=== PATIENT | female | born 1965 | race Caucasian/White ===

== ENCOUNTER 2016-11-19 05:48 | Day surgery (SDC) | payer BC ==
[2016-11-19] VITALS (14 sets, daily range): BP systolic 99–149; BP diastolic 60–87; PULSE 57–80; RESP 12–18; TEMP 97.4–97.9; O2SAT 97–100; Ht 177.8 cm; Wt 63.5 kg
[~2016-11-19] VITALS: Ht 177.8 cm; Wt 63.5 kg
[~2016-11-19 05:48] MED LIST: MULT-933 PO; RANI300T4 PO
[2016-11-19 06:16] LABS: BASOPHILS # (AUTO) 0.1 T/MM3 (0-0.2); BASOPHILS % (AUTO) 0.9 % (0-2); EOSINOPHILS # (AUTO) 0.1 T/MM3 (0-0.5); EOSINOPHILS % (AUTO) 1.8 % (0-4); HGB - HEMOGLOBIN 13.8 GM/DL (12-16); IMMATURE GRANULOCYTE # (AUTO) 0.01 T/MM3 (0.00-0.03); IMMATURE GRANULOCYTE % (AUTO) 0.2 % (0.0-0.5); LYMPHOCYTES # (AUTO) 1.8 T/MM3 (1-4.8); LYMPHOCYTES % (AUTO) 33.4 % (23-45); MEAN CORPUSCULAR HGB 28.6 UUG (26-34); MEAN CORPUSCULAR HGB CONC(MCHC 32.1 GM/DL (31-37); MEAN PLATELET VOLUME 9.4 UM3 (9.4-12.4); MONOCYTES # (AUTO) 0.5 T/MM3 (0-0.8); MONOCYTES % (AUTO) 8.5 % (0-9.0); NEUTROPHILS % (AUTO) 55.2 % (33-66); RED BLOOD COUNT 4.83 M/MM3 (4.00-5.20); WBC - WHITE BLOOD COUNT 5.4 T/MM3 (4.5-11.0)
[2016-11-19 06:22] LABS: BLOOD, URINE NEGATIVE (NEGATIVE); COLOR,URINE YELLOW (YELLOW); LEUKOCYTE ESTERASE ,URINE NEGATIVE (NEGATIVE); NITRITE,URINE NEGATIVE (NEGATIVE); UROBILINOGEN,URINE 0.2 EU/DL (NORMAL)
[2016-11-19 06:25] LABS: ANION GAP 12 MEQ/L (5-15); BUN/CREATININE RATIO 18 RATIO (6-26); CALCIUM 9.5 MG/DL (8.4-10.2); CHLORIDE 103 MEQ/L (98-107); CO2 - CARBON DIOXIDE 31 MEQ/L (22-30); CREATININE 0.8 MG/DL (0.7-1.2); GLOMERULAR FILTRATION RATE 75; GLUCOSE 93 MG/DL (65-110); POTASSIUM 3.8 MEQ/L (3.6-5); SODIUM 146 MEQ/L (134-144)
--- NOTE | 2016-11-19 06:54 | ANESPREOP ---
Anesthesia Record Date and Time DATE: 11/19/16 TIME: 06:53 Proposed Surgical Procedure COLD KNIFE CONE BX NPO since: 2299 Allergies: Coded Allergies: No Known Allergies (Unverified , 11/19/16) Ht/Wt/BMI Height: 5 ' 10.00 " Weight: 63.500 kg BMI: 20.1 kg/m2 Vital Signs Date Time Temp Pulse Resp B/P Pulse Ox O2 Delivery O2 Flow Rate FiO2 11/19/16 06:02 97.6 80 14 143/80 99 Room Air Medications Inpatient Medications Current Medications Medications (Trade) Dose Ordered Sig/Juliette Start Time Stop Time Status Last Admin Dose Admin Lactated Ringer's (Lactated Ringers) 1,000 ml @ 125 mls/hr Q8H 11/19/16 07:00 11/19/16 06:26 125 MLS/HR Multivitamin (Multi-Day Vitamins) 1 Each Tablet, 1 TAB PO DAILY, (Reported) Last Taken: on 11/18/16 1100 Ranitidine HCl (Ranitidine HCl) 300 Mg Tablet, 1 TAB PO BID, (Reported) Last Taken: on 11/19/16 0430 Currently on Beta Yuli: No Medical/Surgical History Anesthesia PMH: Reports: Reflux (controlled with meds), Denies: Anesthesia Reactions (NO AIRWAY ISSUES), Cancer, Glaucoma, Malignant Hyperthermia, Sleep Apnea Smoking Status: Never smoker Use Chewing Tobacco?: No Second Hand Exposure: No Substance Use Type: does not use Alcohol Intake: none HX of Last Menstrual Period: FEB 2013 Past Surgical History Orthopedic Surgeries: Yes - L. KNEE ARTHROSCOPY PER H&P Abdominal Surgeries: Yes - LAP RAUDEL Genitourinary Surgeries: Cardiac Surgeries: Endocrine Surgeries: Reproductive Surgeries: Yes - ENDOCERVICAL CURETTAGE, CERVICAL BIOPSY, LEEP PER H&P Neurological Surgeries: Ear Surgeries: Nose Surgeries: Throat Surgeries: Other Surgeries: Anesthesia Adverse Reactions: FOUND none Family Hx of Anesthesia Advers: none Hx of Motion Sickness: No Pertinent Findings Laboratory Tests 11/19/16 06:09 Test 11/19/16 06:09 Human Chorionic Gonadotropin, Qual Negative (NEGATIVE) Physical Exam Respiratory: Bilat breath sounds equal, Lungs clear Cardiovascular: FOUND Regular rate, rhythm Airway Assessment Mallampati Score: II TMD: 3 Fingerbreadths Neck Extension: Good Overall Assessment: No Airway Concerns ASA: 1 Plan Anesthesia Plan: TIVA, LMA, GETA Discussion Discussed risks/options/alternatives of anesthesia and questions answered. Patient consents. Nursing pain assessment noted. Attestation Statement Prior to the delivery of any anesthetic medication, I examined the patient, developed the plan, obtained the patient's consent and discussed the risk and benefits of the procedure with the patient/guardian. KELY SILVA LAWN CARE WORKER November 19, 2016 06:54
[2016-11-19] MEDS ORDERED: LIDOCAINE 1% (10mg/ml) 2ml SDV INJ ONE (07:00)
[2016-11-19] MEDS ORDERED: LR 1,000 ML IV SCH (07:00)
[2016-11-19] MEDS ORDERED: MIDAZOLAM 2mg/2ml INJECTION ONE (07:16)
[2016-11-19] MEDS ORDERED: FENTANYL 100mcg/2ml INJECTION ONE (07:16)
[2016-11-19] MEDS ORDERED: PROPOFOL 500mg 50 ML IV ONE (07:16)
[2016-11-19] MEDS ORDERED: BUPIVACAINE 0.25%/EPI 1:200,000 30ml SDV ONE (07:17)
[2016-11-19] MEDS ORDERED: DEXAMETHASONE 4mg/ml - 1ml INJECTION ONE (07:34)
[2016-11-19] MEDS ORDERED: ONDANSETRON 4mg/2ml INJECTION ONE (07:34)
[2016-11-19] MEDS ORDERED: METOCLOPRAMIDE 10mg/2ml INJECTION ONE (07:34)
[2016-11-19] MEDS ORDERED: DiphenhydrAMINE 50 MG/ML INJECTION ONE (07:37)
--- NOTE | 2016-11-19 08:07 | GYNOPNOTE1 ---
TRACK EQUIPMENT OPERATOR Postoperative Note Date of Operation: 11/19/16 Preoperative Dx Comments PreOp Dx: cervical dysplasia Postoperative Diagnosis: Same as Preoperative Proc: cold knife cone biopsy Surgeon: Amalia Lane MD Anesthesia Provider: Gregory Kirkpatrick CRNA Anesthesia Type: AMALIA FOWLER MD November 19, 2016 08:07
[2016-11-19] MEDS ORDERED: METOCLOPRAMIDE 10mg/2ml INJECTION IV PRN (08:15)
[2016-11-19] MEDS ORDERED: FENTANYL 100mcg/2ml INJECTION IV PRN (08:15)
[2016-11-19] MEDS ORDERED: HYDROCODONE/APAP 5 mg/325 mg TABLET PO PRN (08:15)
[2016-11-19] MEDS ORDERED: MORPHINE SULFATE 4 MG SYRINGE IV PRN (08:15)
[2016-11-19] MEDS ORDERED: IBUPROFEN 800 MG TABLET PO PRN (08:15)
[2016-11-19] MEDS ORDERED: ONDANSETRON 4mg/2ml INJECTION IV PRN (08:15)
--- NOTE | 2016-11-19 08:28 | ANESPO ---
Post-Op Note Date 11/19/16 Time: 08:27 Status Pt Participated in Evaluation: Pt participated in person Vital Signs Date Time Temp Pulse Resp B/P Pulse Ox O2 Delivery O2 Flow Rate FiO2 11/19/16 06:02 97.6 80 14 143/80 99 Room Air Respiratory Function: Airway patent, Regular respirations Cardiovascular Function: Regular pulse Mental Status: Alert/oriented Pain Level Intensity: 0 Hydration: IV infusing Complications during Recovery None apparent Follow-Up Instructions Instructions Per Surgeon KELY SILVA CRNA November 19, 2016 08:28
--- NOTE | 2016-11-19 14:20 | OPNOTEF ---
DATE OF OPERATION 11/19/2016 PREOPERATIVE DIAGNOSIS Cervical dysplasia (ASCUS positive HPV). POSTOPERATIVE DIAGNOSIS Cervical dysplasia (ASCUS positive HPV). PROCEDURE Cold knife cone biopsy. SURGEON Amalia Lane MD ANESTHESIA TIVA with local SOFTWARE PROGRAM MANAGER TRAV [place] Minimal DESCRIPTION OF PROCEDURE Ms. Andersen was brought to the OR and placed on the OR table in the comfortable supine position. She was given IV analgesia to good effect. She was then placed in standard lithotomy position. The perineum and vagina were prepped and draped in the usual sterile fashion. The bladder was drained with a sterile in-and-out catheter. The cervix was visualized with a freeway speculum. It was grasped with a single-tooth tenaculum. The cervix was infiltrated with 0.25% bupivacaine with epinephrine at the 3 and 6 o'clock positions then simple ligatures of 2-0 Vicryl were placed through the cervix at these positions. Cervix was coated with Lugol solution. A sharp knife was then used to cut a circumferential cone from the cervix encompassing what I could see of the transformation zone. I then used scissors to cut across the base of this. The cervix was marked with a suture at the 12 o'clock position and sent to pathology. The stump was fairly hemostatic but some cautery was used in a couple of places to secure that. We then applied Monsel's solution. We observed carefully for hemostasis. This remained under good control. I removed our retractor and returned Ms. Andersen to the supine position. She was then awakened and transferred to recovery in stable condition. ARUN
== END 2016-11-19 09:48 | disposition home or self-care (01) ==
LOC: SCU 05:48
PROVIDERS: ATTEND Obstetrics & Gynecology
DX: N87.0 Mild cervical dysplasia (principal); N72 Inflammatory disease of cervix uteri; R87.810 Cervical high risk human papillomavirus (HPV) DNA test positive; Z79.899 Other long term (current) drug therapy
CPT/HCPCS: 36415; 57520; 80048; 81003; 84703; 85025; J1100; J1200; J2250; J2405; J2704; J2765; J3010; J7120; S0020